=== PATIENT | male | born 1980 | race Caucasian/White ===

== ENCOUNTER 2019-02-23 06:27 | Emergency (ER) | payer OTHER ==
[~2019-02-23] VITALS: Ht 180.3 cm; Wt 115.2 kg
[2019-02-23] MEDS ORDERED: ALBUTEROL1.25 MG/3 (06:47)
[2019-02-23] MEDS ORDERED: SINGULAIR10 MG (06:47)
[2019-02-23] MEDS ORDERED: PROAIR HFA8.5 GM (06:48)
[2019-02-23] MEDS ORDERED: SYMBICORT 16010.2 GM (06:48)
[2019-02-23] MEDS ORDERED: NORVASC5 MG (06:48)
[2019-02-23] MEDS ORDERED: ZANTAC 7575 MG (06:49)
[2019-02-23] MEDS ORDERED: CLONAZEPAM2 MG (06:49)
[2019-02-23] MEDS ORDERED: PROTONIX40 MG (06:49)
[2019-02-23] MEDS ORDERED: AMBIEN5 MG (06:49)
[2019-02-23] MEDS ORDERED: DICY20TA (06:50)
[2019-02-23] MEDS ORDERED: ENTYVIO300 MG (06:51)
== END 2019-02-23 11:50 | disposition home or self-care (01) ==
LOC: ER 06:27
DX: K57.90 Diverticulosis of intestine, part unspecified, without perforation or abscess without bleeding (principal); R10.13 Epigastric pain